=== PATIENT | female | born 1990 | race Caucasian/White ===

== ENCOUNTER 2020-10-15 11:04 | Outpatient (REF) | payer OTHER, SELFPAY ==
[2020-10-16 07:22] LABS: BV Int Neg Control Negative (Negative); BV Int Pos Control Positive (Positive)
[2020-10-22 09:47] LABS: HPV mRNA E6/E7 rflx Not Detected (Not Detected)
== END 2020-10-15 11:05 | disposition home or self-care (01) ==
LOC: HO.LAB 11:04
PROVIDERS: PCP Hospitalist; Visit Provider Advanced Practice Midwife
DX: Z01.419 Encounter for gynecological examination (general) (routine) without abnormal findings (principal); N89.8 Other specified noninflammatory disorders of vagina
CPT/HCPCS: 87480; 87510; 87624; 87625; 87660; 88142

== ENCOUNTER 2020-10-19 09:53 | Outpatient (REF) | payer OTHER, SELFPAY ==
[2020-10-19 11:04] LABS: Hematocrit 40.9 % (37-47); Hemoglobin 14.2 g/dl (12.0-16.0); Mean Corpuscular HGB Conc 34.7 g/dl (31.0-35.0); Mean Corpuscular Volume 89.3 fL (80-98); Mean Platelet Volume 9.1 fL (9.4-12.3); Platelet Count 282 X10*3/uL (160-400); Red Blood Count 4.58 X10*6/uL (4.20-5.50); Red Cell Distribution Width 11.6 % (11.0-16.0); White Blood Count 3.4 X10*3/uL (4.8-10.8)
[2020-10-19 12:04] LABS: Alanine Aminotransferase 15 U/L (0-31); Albumin Level 4.6 g/dL (3.5-5.0); Alkaline Phosphatase 47 U/L (39-117); Anion Gap 11 (12-20); Aspartate Amino Transferase 15 U/L (5-31); Bilirubin Direct 0.5 mg/dL (0.0-0.5); Bilirubin Total 1.5 mg/dL (0.0-1.0); Blood Urea Nitrogen 13 mg/dL (9-16); Carbon Dioxide 29 mmol/L (22-29); Chloride 104 mmol/L (96-108); Cholesterol 233 mg/dL; Estimated Glomerular Filt Rate > 60; Glucose Fasting 89 mg/dL (60-99); HDL Cholesterol 71 mg/dL; LDL Cholesterol Calculated 151 mg/dl; Potassium 4.8 mmol/l (3.3-5.1); Sodium 139 mmol/L (135-145); Total Protein 7.8 g/dL (6.5-8.0); Triglycerides 55 mg/dL
[2020-10-19 12:06] LABS: TSH reflex Free T4 0.78 mIU/mL (0.32-4.0)
== END 2020-10-19 09:54 | disposition home or self-care (01) ==
LOC: HO.WFDLDS 09:53
PROVIDERS: PCP Hospitalist; Visit Provider Hospitalist
DX: Z00.00 Encounter for general adult medical examination without abnormal findings (principal)
CPT/HCPCS: 36415; 80048; 80061; 80076; 84443; 85027